=== PATIENT | male | born 1965 | race Caucasian/White ===

== ENCOUNTER 2017-10-04 15:47 | Emergency (ER) | payer OTHER ==
[2017-10-04 16:19] VITALS: BP 123/65
--- NOTE | 2017-10-04 16:35 | UC ---
Lower Extremity/Ankle HPI - HPI Summary HPI Summary: 51-year-old male history of diabetes, hypertension, hyperlipidemia, multiple orthopedic procedures on her right ankle and foot years ago, presents with left- sided heel pain 1 week after stepping on a needle accidentally. After he had the needle removed, patient was not on an antibiotic, complains of worsening pain located on the lateral plantar surface of the left heel in the area where he got stuck with a needle, associated with gradually worsening redness, tenderness, and swelling. Pain is sharp, worse with weightbearing and movement , radiating up towards the left lower leg. Also complains of general malaise over the past week. Denies any recent fevers. No prior episodes. - History of Current Complaint Chief Complaint: UCSkin Stated Complaint: LEFT FOOT ISSUE Pain Intensity: 9 - Allergies/Home Medications Allergies/Adverse Reactions: Allergies Allergy/AdvReac Type Severity Reaction Status Date / Time No Known Allergies Allergy Verified 10/04/17 16:19 Home Medications: Home Medications Atorvastatin* [Lipitor*] 40 mg PO 1700 10/04/17 [History Confirmed 10/04/17] Clopidogrel TAB* [Plavix TAB*] 75 mg PO DAILY 10/04/17 [History Confirmed ] Insulin Lispro [Humalog Kwikpen] 0 unit SUBCUT . DIRECTED 10/04/17 [History Confirmed 10/04/17] Metoprolol Succinate 100 mg PO DAILY 10/04/17 [History Confirmed 10/04/17] Naltrexone TAB* 50 mg PO DAILY 10/04/17 [History Confirmed 10/04/17] Ramipril CAP* [Altace CAP*] 10 mg PO DAILY 10/04/17 [History Confirmed 10/04/17] Venlafaxine ER (NF) [Effexor ER (NF)] 150 mg PO DAILY 10/04/17 [History Confirmed 10/04/17] buPROPion HCl [Bupropion HCl Xl] 150 mg PO DAILY 10/04/17 [History Confirmed ] glipiZIDE [Glipizide ER] 10 mg PO DAILY 10/04/17 [History Confirmed 10/04/17] metFORMIN* [Glucophage 1000 MG TAB *] 1,000 mg PO 0800,1700 10/04/17 [History Confirmed 10/04/17] PMH/Surg Hx/FS Hx/Imm Hx - Additional Past Medical History Additional PMH: Diabetes, hypertension, hyperlipidemia, multiple orthopedic procedures on the right ankle and foot - Surgical History Surgical History: Yes Surgery Procedure, Year, and Place: cardiac stent - Social History Alcohol Use: None Substance Use Type: Marijuana, Other Substance Use Comment - Amount & Last Used: crack Smoking Status (MU): Heavy Every Day Tobacco Smoker Type: Smokeless Tobacco Amount Used/How Often: daily Review of Systems Constitutional: Other - General malaise Musculoskeletal: Other: - Left-sided foot pain as noted in history of present illness All Other Systems Reviewed And Are Negative: Yes Physical Exam - Summary Physical Exam Summary: Gen: alert, in no acute distress HEENT: EOMI, normoecphalic, atruamatic Neck: supple, no masses CV: Normal s1 s2, no murmurs Resp: normal breath sounds b/l GI: no tenderness, no masses Musculoskeletal: normal ROM all 4 extremities. Left foot swelling on the lateral plantar surface of the left heel, moderate erythema and warmth. Normal intact pulses in the bilateral posterior tibial and pedal areas. Exquisite tenderness along the area of the initial puncture wound with round discoloration of the skin measuring approximately 4 cm in diameter Skin: no rash Lymph: no lymphadenopathy Psych: appropriate affect, oriented Triage Information Reviewed: Yes Vital Signs: Initial Vital Signs Temp 36.6 C 10/04/17 16:03 Pulse 95 10/04/17 16:03 Resp 18 10/04/17 16:03 BP 123/65 10/04/17 16:03 Pulse Ox 100 10/04/17 16:03 Diagnostics - Radiology FOOT x-ray left Xray Interpretation: No Acute Changes Lower Extremity Course/Dx - Course Course Of Treatment: Given this patient's history of diabetes, infection of the foot remains concerning for rapid worsening, therefore, I recommended that he reported emergency department immediately for set of blood work and reevaluation and possible IV antibiotics if necessary. Patient and caregiver agree to take him to the emergency department. I spoke with Dr. Lassiter at 1710 at [facility] who kindly agrees to evaluate patient. - Differential Dx/Diagnosis Provider Diagnoses: Cellulitis of the left foot Discharge - Sign-Out/Discharge Documenting (check all that apply): Patient Departure - to ED All imaging exams completed and their final reports reviewed: Yes - Discharge Plan Condition: Guarded Disposition: HOME Referrals: No Primary Care Phys,NOPCP [Primary Care Provider] - - Billing Disposition and Condition Condition: GUARDED Disposition: Home
[2017-10-04] MEDS ORDERED: Morphine VIAL* 10 MG/ML 1 ML VIAL IM ONE (17:03)
[2017-10-04] MEDS ORDERED: traMADol TAB* 50 MG PO ONE (17:07)
--- NOTE | 2017-10-04 17:21 | RAD ---
INDICATION: Pain and swelling. Puncture injury COMPARISON: None TECHNIQUE: AP, lateral, and oblique views were obtained. FINDINGS: There is no acute fracture or foreign body. The joint spaces are maintained. There are Achilles and plantar calcaneal spurs. IMPRESSION: HEEL SPURS
== END 2017-10-04 17:15 | disposition home or self-care (01) ==
LOC: UCCORT 15:47
DX: L03.116 Cellulitis of left lower limb (principal); R53.81 Other malaise; E11.9 Type 2 diabetes mellitus without complications; I10 Essential (primary) hypertension; E78.5 Hyperlipidemia, unspecified; Z79.4 Long term (current) use of insulin; Z79.899 Other long term (current) drug therapy
CPT/HCPCS: 99202; A9270-GY; G0463